=== PATIENT | female | born 1965 | race Two or more races ===

== ENCOUNTER 2017-03-13 22:08 | Emergency (ER) | payer MEDICAID ==
[~2017-03-13] VITALS: Ht 170.2 cm; Wt 74.8 kg
[2017-03-13 22:08] VITALS: BP_SYST 145
--- NOTE | 2017-03-13 22:42 | NUR ---
Patient to ER bed 5 to gown for evaluation. Side rails up. Report given to KARLA LADD.
--- NOTE | 2017-03-13 22:45 | NUR ---
Patient brought to ED a/o x 4 with deformity to right lowe leg. Patient reports injuring foot 1 week ago. Presents to ED with swelling and bruising to right foot and ankle. CMS present to the affected extremity. Denies SOB. Pain 6/10 at this time. Patient able to bear partial weight to extremity. Will continue to monitor.
--- NOTE | 2017-03-13 22:51 | NUR ---
ED MD Osborn at bedside for medical evaluation.
--- NOTE | 2017-03-13 23:11 | NUR ---
Patient transported off unit via wheelchair for US.
--- NOTE | 2017-03-13 23:30 | NUR ---
Patient returned to unit.
--- NOTE | 2017-03-14 00:38 | NUR ---
ED MD Osborn at bedside reassessing patient
[2017-03-14 00:50] VITALS: BP_SYST 137
--- NOTE | 2017-03-14 00:50 | NUR ---
Patient given written and verbal discharge instructions and verbalizes understanding. ER MD discussed with patient the results and treatment provided. Patient in stable condition. ID arm band removed. No Rx given. Patient educated on pain management and to follow up with PMD. Pain Scale 3/10 tolerable for patient. Opportunity for questions provided and answered.
== END 2017-03-14 00:50 | disposition home or self-care (01) ==
LOC: SED 22:08
DX: S80.11XA Contusion of right lower leg, initial encounter (principal); Z90.89 Acquired absence of other organs; W22.03XA Walked into furniture, initial encounter; Y93.89 Activity, other specified; Y92.89 Other specified places as the place of occurrence of the external cause; Y99.2 Volunteer activity
CPT/HCPCS: 73590-TC; 93971; 99284